=== PATIENT | male | born 1985 | race American Indian/Alaskan Native ===

== ENCOUNTER 2022-05-22 15:04 | Emergency (ER) | payer MEDICAID ==
[2022-05-22 16:37] LABS: ESTIMATED GFR 124 mL/min (>60)
[2022-05-22 16:39] VITALS: BP 136/80; PULSE 59
[2022-05-22] MEDS ORDERED: Famotidine 20 MG Tab PO ONE (17:24)
== END 2022-05-22 19:01 ==
LOC: JP.ED 15:04
DX: K80.50 Calculus of bile duct without cholangitis or cholecystitis without obstruction (principal); E10.21 Type 1 diabetes mellitus with diabetic nephropathy; Z72.0 Tobacco use; Z88.5 Allergy status to narcotic agent; Z79.899 Other long term (current) drug therapy
CPT/HCPCS: 36415; 76705; 76705-26; 80053; 80305-QW; 81001; 85025; 99284; A9270-GY

== ENCOUNTER 2022-08-07 22:21 | Emergency (ER) | payer MEDICAID ==
[2022-08-07 22:52] VITALS: BP 115/54; PULSE 82
[2022-08-07] MEDS ORDERED: Acetaminophen 500 MG Tab PO ONE (23:34)
[2022-08-07] MEDS ORDERED: Ibuprofen 400 MG Tab PO ONE (23:34)
[2022-08-07 23:39] LABS: BASOPHILS ABSOLUTE AUTO 0.07 K/uL (0.00-0.10); BASOPHILS PERCENT AUTO 1.1 % (0.1-1.3); EOSINOPHILS ABSOLUTE AUTO 0.03 K/uL (0.00-0.40); EOSINOPHILS PERCENT AUTO 0.5 % (0.0-5.4); HEMATOCRIT 41.6 % (38.4-49.7); HEMOGLOBIN 14.1 g/dL (12.9-16.9); IMMATURE GRAN PERCENT AUTO 0.3 % (0.0-0.7); LYMPHOCYTES ABSOLUTE AUTO 1.98 K/uL (0.8-3.3); LYMPHOCYTES PERCENT AUTO 30.6 % (11.4-47.7); MEAN CORPUSCULAR HEMOGLOBIN 30.2 pg (31.6-35.5); MEAN CORPUSCULAR HGB CONC 33.9 g/dL (31.6-35.5); MEAN CORPUSCULAR VOLUME 89.1 fL (81.4-99.0); MONOCYTES ABSOLUTE AUTO 0.51 K/uL (0.20-0.90); MONOCYTES PERCENT AUTO 7.9 % (3.3-12.6); NEUTROPHILS ABSOLUTE AUTO 3.86 K/uL (1.0-7.6); NEUTROPHILS PERCENT AUTO 59.6 % (40.0-78.1); PLATELET COUNT,PLT 189 K/uL (130-375); RED BLOOD CELL COUNT 4.67 M/uL (4.14-5.76); WHITE BLOOD CELL COUNT,WBC 6.5 K/uL (3.2-11.0)
[2022-08-07 23:42] LABS: IMMATURE GRAN ABSOLUTE AUTO 0.02 K/uL (0.00-0.23)
[2022-08-07 23:45] LABS: BILIRUBIN,URINE NEGATIVE (NEGATIVE); COLOR,URINE YELLOW (YELLOW); GLUCOSE,URINE 500 mg/dL (NEGATIVE); KETONES,URINE NEGATIVE (NEGATIVE); LEUKOCYTE ESTERASE,URINE SMALL (NEGATIVE); NITRITE,URINE NEGATIVE (NEGATIVE); OCCULT BLOOD,URINE TRACE-LYSED (NEGATIVE); PROTEIN,URINE 30 mg/dL (NEGATIVE)
[2022-08-07 23:56] LABS: AMPHETAMINES SCREEN, URINE NEGATIVE (NEGATIVE); BARBITURATE SCREEN,URINE NEGATIVE (NEGATIVE); BENZODIAZEPINES SCREEN,URINE NEGATIVE (NEGATIVE); METHADONE SCREEN, URINE NEGATIVE (NEGATIVE); METHAMPHETAMINES SCREEN, URINE NEGATIVE (NEGATIVE); OXYCODONE SCREEN,URINE NEGATIVE (NEGATIVE); PROPOXYPHENE SCREEN,URINE NEGATIVE (NEGATIVE); THC SCREEN,URINE 50 NG/ML PRESUMPTIVE POSITIVE (NEGATIVE)
[2022-08-07 23:56] LABS: AMORPHOUS SEDIMENT,URINE NOT SEEN; APPEARANCE,URINE SLIGHTLY CLOUDY (CLEAR); BACTERIA,URINE MODERATE; EPITHELIAL CELLS,URINE RARE; MUCUS,URINE RARE; RBC,URINE 0-5 (0-5)
[2022-08-08 00:07] LABS: A/G RATIO 0.6 (1.2-2.2); ALANINE AMINOTRANSFERASE,ALT 123 U/L (12-78); ALBUMIN 3.3 g/dL (3.4-5.0); ALKALINE PHOSPHATASE 160 U/L (46-116); ASPARTATE AMNIOTRANSFERASE,AST 142 U/L (15-37); BILIRUBIN TOTAL 0.5 mg/dL (0.2-1.0); BLOOD UREA NITROGEN,BUN 8 mg/dL (7-18); CALCIUM 8.6 mg/dL (8.5-10.1); CARBON DIOXIDE,CO2 23 mmol/L (21-32); CHLORIDE,CL 100 mmol/L (100-108); CREATININE 0.8 mg/dL (0.8-1.3); EST CRCL DRUG DOSING (CG) 133.07 mL/min; ESTIMATED GFR 118 mL/min (>60); GLUCOSE RANDOM 224 mg/dL (74-106); LIPASE 87 U/L (73-393); POTASSIUM,K 5.3 mmol/L (3.6-5.2); PROTEIN TOTAL,TP 8.5 g/dL (6.4-8.2); SODIUM,NA 133 mmol/L (140-148)
[2022-08-08 00:14] LABS: ANION GAP 15.3 mmol/L (5.0-14.0)
== END 2022-08-08 00:31 ==
LOC: JP.ED 22:21
DX: K80.20 Calculus of gallbladder without cholecystitis without obstruction (principal); E10.65 Type 1 diabetes mellitus with hyperglycemia; F10.920 Alcohol use, unspecified with intoxication, uncomplicated; R30.0 Dysuria; R82.81 Pyuria; R74.8 Abnormal levels of other serum enzymes; I10 Essential (primary) hypertension; E10.21 Type 1 diabetes mellitus with diabetic nephropathy; Z72.0 Tobacco use; Z86.16 Personal history of COVID-19; Z88.5 Allergy status to narcotic agent; Z88.8 Allergy status to other drugs, medicaments and biological substances; Y90.6 Blood alcohol level of 120-199 mg/100 ml
CPT/HCPCS: 36415; 80053; 80305; 80307; 81001; 82009; 82800; 82947; 83690; 85025; 87086; 99284; A9270